=== PATIENT | male | born 1950 | race Caucasian/White ===

== ENCOUNTER 2018-09-26 08:26 | Day surgery (SDC) | payer MEDICARE ==
--- NOTE | 2018-09-26 06:36 | History and Physical - [place] ---
CHIEF COMPLAINT/HISTORY OF CHIEF COMPLAINT: This patient presents with a history of a post lumbar laminectomy and an implanted spinal infusion system with Hydromorphone. Over the last number of refills, it was noted that he had a pending battery depletion. He is here for pump battery change on an outpatient basis. PAST MEDICAL HISTORY: Hypertension and peripheral neuropathy. PAST SURGICAL HISTORY: Lumbar spinal surgery infusion, cervical spine surgery infusion, hip replacement and hernia repair. MEDICATIONS ON ADMISSION: List to be provided. ALLERGIES: None. FAMILY/PSYCHOSOCIAL HISTORY: Social history - Noncontributory. Family history - Diabetes. SYSTEMS REVIEW: The patient is appropriate in no acute distress. The remainder of the systems review is positive for headaches, hypertension, peripheral edema, bladder dysfunction, degenerative arthritis, depression and difficulty sleeping. PHYSICAL EXAMINATION: Height is 5'11", weight is 200 pounds. No vital signs. HEENT: Within normal limits. LUNGS: Clear. HEART: Rapid and regular. ABDOMEN: Nontender. MUSCULOSKELETAL: Examination of the musculoskeletal system shows the pump in the right posterior gluteal margin. The incisional site is intact. There is no breakdown or cellulitis. Underlying pain pattern bilateral lower extremity. NEUROLOGIC: Cranial nerves are intact. IMPRESSION: 1. 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 2. IMPLANTED SPINAL INFUSION SYSTEM WITH HYDROMORPHONE. PLAN: The patient is here for a pump battery change without perimeter changes. The procedure will be considered outpatient, an overnight stay will not be necessary. The side effects and complications potentially have been reviewed and discussed. JOB NUMBER: [id number] [facility]
[~2018-09-26 08:26] MED LIST: ACETAMINOPHEN 1,000 MG/100 ML BTL IVPB ONE; CEFAZOLIN 2 Gram 2 GM/50 ML BAG IVPB ONE; FAMOTIDINE 20MG TABLET PO ONE; HYDROMORPHONE HCL 0.04 GM in 0.9 % SODIUM CHLORIDE 10ML VIA 20 ML IV ONE; HYDROMORPHONE PF 2MG/ML AMP 0.008 MG in 0.9 % SODIUM CHLORIDE 10ML VIA 0.996 ML IV ONE; MECLIZINE 25 MG TABLET PO ONE; METOCLOPRAMIDE 10 MG TABLET PO ONE; VANCOMYCIN 1GM/200ML PREMIX 1 GM/200 ML PIGGYBACK IVPB ONE
[2018-09-26] MEDS ORDERED: FENTANYL PF 100MCG/2ML VIAL IV ONE (08:27)
[2018-09-26] MEDS ORDERED: PROPOFOL 10 MG/ML VIAL IV ONE (08:27)
[2018-09-26] MEDS ORDERED: MIDAZOLAM HCL 2MG/2ML VIAL IV ONE (08:27)
[2018-09-26] MEDS ORDERED: LIDOCAINE 2% MDV (20MG/ML) 20ML VIAL IV ONE (08:27)
[2018-09-26 08:46] LABS: ABSOLUTE NEUTROPHIL COUNT 4.95; BASO % 0.4 % (0-6); EOS % 3.7 % (0-6); GRAN % 72.4 % (47-80); HEMATOCRIT 34.2 % (42.0-52.0); HEMOGLOBIN 10.6 gm/dl (14.0-18.0); MEAN CORPUSCULAR HEMOGLOBIN 25.7 pg (27-33); MEAN PLATELET VOLUME 9.8 fl (7.4-10.4); MONO % 10.5 % (0-9); PLATELET COUNT 337 K/uL (130-400); RED BLOOD COUNT 4.12 M/uL (4.40-5.70); RED CELL DISTRIBUTION WIDTH 14.4 % (11.5-14.5); WHITE BLOOD COUNT W/O DIFF 6.8 K/uL (4.2-12.2)
[2018-09-26 09:09] LABS: BLOOD UREA NITROGEN 17 mg/dL (8-23); CREATININE 0.9 mg/dL (0.7-1.2); EST GLOMERULAR FILTRATION RATE > 60 mL/min; GLUCOSE,RANDOM 230 mg/dL (74-109)
[2018-09-26] MEDS ORDERED: 0.9 % SODIUM CHLORIDE 1000ML 1,000 ML IV ONE (09:15)
[2018-09-26] MEDS ORDERED: LIDOCAINE 1% W/EPI 1:200,000 MPF 30ML SQ ONE ×2 (10:40)
[2018-09-26] MEDS ORDERED: BUPIVACAINE 0.5% W/EPI MPF 30 ML VIAL SQ ONE ×2 (10:40)
[2018-09-26] MEDS ORDERED: CEFAZOLIN 0.5 G in 0.9 % SODIUM CHLORIDE 1000ML 500 ML IVP ONE (10:40)
--- NOTE | 2018-09-28 09:00 | Operative Note ---
DATE OF SURGERY: 09/26/2018 PREOPERATIVE DIAGNOSES: 1. Post lumbar laminectomy syndrome, ICD10 code M96.1 with radiculopathy, ICD10 code M54.16 and M54.17. 2. Programmable implanted spinal fusion device hydromorphone with battery depletion. OPERATION: 1. Fluoroscopic-guided incision and subcutaneous dissection and removal and replacement of internal spinal programmable pump right posterior gluteal margin. 2. Diagnostic myelography with radiologic supervision and interpretation. 3. Closure of incision Stratafix suture, 2-0 fascia, 3-0 skin, Dermabond closure. 4. Programming of pump to delivery by continuous infusion of hydromorphone 3.157 mg a day. SURGEON: Karsten Cameron DO ANESTHESIA: Local with sedation. ANESTHESIA PROVIDER: María INDICATION: This patient presents with a history of intractable post lumbar laminectomy radiculopathy. An implanted spinal infusion system device infusing spinal hydromorphone at 3.157 mg a day. Over the last number of refills, battery depletion noted. He is here for batter change without parameter changes. PROCEDURE: Intravenous line, vital signs monitoring, IV sedation. Prepped and draped in sterile technique. Patient positioned prone. Sterile prep, sterile technique. The pump pouch at the right posterior gluteal margin was identified. Skin infiltrated, incision made, and subcutaneous dissection was conducted to the Dacron sleeve which was open. The pump exteriorized and from the implanted catheter. A new 20 mL programmable pump hydromorphone 25 mg/mL placed onto the field prefilled. The pump was interfaced to the implanted spinal catheter. A curved 24-gauge Dotson needle was inserted into the access port and 1 mL of catheter contents was aspirated clearing the catheter of opioid and CSF mixture. Diagnostic myelography performed through the access port under radiologic supervision and interpretation. Flow characteristics were appropriate to the device. Pump catheter identified. Tip of catheter at T12. Myelogram characteristics identified confirming functionality. Antibiotic irrigation and Bovie for hemostasis in the pouch. The pump was then placed in the pouch, secured to the posterior fascia with nonabsorbable suture at one point, pump eyelet. With the pump in the pouch, the incision was closed as well as a Dacron sleeve using Stratafix suture, 2-0 fascia, 3-0 skin, Dermabond closure. The pump was then programmed to deliver by continuous infusion hydromorphone at the original rate of 3.157 mg a day. He was transported to the recovery room stable. There were no side effects from the procedure or sedation. DISCHARGE INSTRUCTIONS: 1. Sites to remain clean and dry. No showering or bathing in any way although the Dermabond will allow showering. Should not sit in water. 2. Standard medications resume including the antibiotic Levaquin 500 mg once a day for 14 days. 3. Office to contact the patient at his facility and set up a time in 7-10 days for us to evaluate the site. All other instructions provided, numbers to contact if problems given. He was then discharged. 4. Spinal opioid side effects of respiratory depression, nausea, vomiting, constipation, urinary retention, lightheadedness, or rash have been discussed and reviewed. Should it happen, contact the clinic or go to local emergency room. [place]
== END 2018-09-26 12:30 | disposition home or self-care (01) ==
LOC: SUR 08:26
PROVIDERS: ATTEND Pain Medicine Interventional Pain Medicine
DX: M96.1 Postlaminectomy syndrome, not elsewhere classified (principal); M54.16 Radiculopathy, lumbar region; M54.17 Radiculopathy, lumbosacral region; I10 Essential (primary) hypertension; E11.9 Type 2 diabetes mellitus without complications; Z79.4 Long term (current) use of insulin; E03.9 Hypothyroidism, unspecified; R60.9 Edema, unspecified; Z89.519 Acquired absence of unspecified leg below knee; Z90.5 Acquired absence of kidney
CPT/HCPCS: 62362; 00300; 62368; 85025; 85730; 80048; Q9967; J3010; J3370; C1776; J0690; J7030